=== PATIENT | male | born 1980 | race Caucasian/White ===

== ENCOUNTER 2018-03-15 18:19 | Emergency (ER) | payer OTHER ==
[~2018-03-15] VITALS: Ht 182.9 cm; Wt 68.0 kg
[2018-03-15] MEDS ORDERED: LIDOCAINE 1%-EPI 1:100,000 20 ML VIAL ONE (18:35)
--- NOTE | 2018-03-15 18:38 | NUR ---
BIB SELF, W LACERATION TO FACE AND UPPER LIP S/P FALL. TO ER BED 4, HOOKED TO MONITOR, AWAITING MD MARADIAGA.
--- NOTE | 2018-03-15 18:39 | NUR ---
POSTAL TRANSPORTATION CLERK AT BEDSIDE
--- NOTE | 2018-03-15 18:43 | NUR ---
Se koo in EDM - 03/15/18 at 1937 by HUMPHREY BIB SELF, W LACERATION TO FACE AND UPPER LIP S/P FALL. TO ER BED 4, HOOKED TO MONITOR, AWAITING MD MARADIAGA.
[2018-03-15] MEDS ORDERED: HYDROCODONE/APAP 5/325MG 1 EACH TABLET PO ONE ×2 (19:00→21:30)
[2018-03-15] MEDS ORDERED: HYDROCODONE/APAP 5/325MG 1 EACH TABLET ONE (19:15)
--- NOTE | 2018-03-15 19:18 | NUR ---
REPORT REC'D FROM KYAW Gonzalez
--- NOTE | 2018-03-15 19:20 | NUR ---
SUTURING IN PROGRESS
[2018-03-15] MEDS ORDERED: CEPHALEXIN MONOHYDRATE 500 MG CAPSULE PO ONE ×2 (20:51→21:00)
[2018-03-15] MEDS ORDERED: TDAP [DIPH/PERTUSSIS/TET] 0.5 ML VIAL IM ONE ×2 (20:51→21:00)
--- NOTE | 2018-03-15 21:00 | NUR ---
XRAY AT THE BEDSIDE
--- NOTE | 2018-03-15 21:22 | NUR ---
Jackson WINTERS SCREEN OPERATOR AT THE BEDSIDE.
--- NOTE | 2018-03-15 22:00 | NUR ---
Patient discharged to home in stable condition. Written and verbal after care instructions given. Patient verbalizes understanding of instruction AND RX. PT AMBULATED OUT WITH A STEADY GAIT. VSS. NAD NOTED. PT WAS INSTRUCTED NOT TO DRIVE. PT IS CALLING JC TO TAKE HIM HOME. VSS.
[2018-03-15 22:05] VITALS: BP 128/87
== END 2018-03-15 22:06 | disposition home or self-care (01) ==
LOC: ER 18:21
DX: S52.572A Other intraarticular fracture of lower end of left radius, initial encounter for closed fracture (principal); S01.511A Laceration without foreign body of lip, initial encounter; S01.21XA Laceration without foreign body of nose, initial encounter; V00.141A Fall from scooter (nonmotorized), initial encounter; Y93.55 Activity, bike riding; Y92.89 Other specified places as the place of occurrence of the external cause; Y99.8 Other external cause status
CPT/HCPCS: 12054; 73110; 73130; 90471; 90715; 99284; A4606; A6403 ×2; J3490; Z7610